=== PATIENT | male | born 1970 | race African-American/Black ===

== ENCOUNTER 2019-06-12 13:02 | Day surgery (SDC) | payer BC ==
[2019-06-12] MEDS ORDERED: LIDOCAINE 2% MDV (20MG/ML) 20ML VIAL IV ONE (13:03)
[2019-06-12] MEDS ORDERED: PROPOFOL 10 MG/ML VIAL IV ONE (13:03)
--- NOTE | 2019-06-12 14:30 | Operative Note ---
OPERATION: COLONOSCOPY with cold forceps polypectomy x3. PREOPERATIVE DIAGNOSIS: Family history of colon cancer. POSTOPERATIVE DIAGNOSIS: Sigmoid and rectal polyps x3. PREPARATION QUALITY: Excellent. ESTIMATED BLOOD LOSS: Minimal. SPECIMENS: Sigmoid polyps x2, rectal polyp x1. COMPLICATIONS: None apparent. PROCEDURE: After informed consent was obtained from the patient, he was placed in the left lateral decubitus position in the endoscopy suite, sedated and monitored by the department of anesthesia. Digital rectal examination was unremarkable. A well-lubricated ELR841 colonoscope was inserted into the rectum and advanced to the cecum. Preparation quality was excellent. The cecum, cecal bulb, ileocecal valve, appendiceal orifice, ascending colon, transverse colon, and descending colon were free of inflammatory changes, mass lesions, or polyps. There were 2 diminutive sigmoid polyps removed with a cold forceps and 1 diminutive rectal polyp removed with a cold forceps. J-turn views of the anorectum were unremarkable. The endoscope was straightened, the rectal ampulla deflated, and the endoscope was removed. RECOMMENDATIONS: The patient can resume his medications and diet. He will require repeat exam most likely in 5 years with a final determination based on tissue histology. As always, thank you for allowing me to participate in the healthcare of your patients. ELSA
== END 2019-06-12 14:05 | disposition home or self-care (01) ==
LOC: HOP 13:02
PROVIDERS: ATTEND Internal Medicine Gastroenterology
DX: Z12.11 Encounter for screening for malignant neoplasm of colon (principal); D12.5 Benign neoplasm of sigmoid colon; K62.1 Rectal polyp; Z80.0 Family history of malignant neoplasm of digestive organs; I10 Essential (primary) hypertension; E11.9 Type 2 diabetes mellitus without complications